=== PATIENT | male | born 1965 | race Caucasian/White ===

== ENCOUNTER 2017-11-11 11:51 | Inpatient (IN) ==
[2017-11-11] MEDS ORDERED: Naloxone 0.4 MG/ML INJ IVP PRN (15:24)
[2017-11-11] MEDS ORDERED: D5% in 0.45% NACL 1,000 ML IVC PRN (15:26)
[2017-11-11] MEDS ORDERED: *HR* Dextrose 50 % in Water (Syg) 50 ML SYRINGE IVP PRN (15:26)
[2017-11-11] MEDS ORDERED: Insulin Regular, Human 100 UNIT/ML IV PRN (15:26)
[2017-11-11] MEDS ORDERED: D5% in 0.45% NACL w KCl 20 MEQ/1,000 ML MLS IVC PRN (15:26)
[2017-11-11] MEDS ORDERED: 0.9 % Sodium Chloride w KCl 20 MEQ/1,000 ML MLS IVC SCH (15:30)
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
[2017-11-11 16:16] LABS: Magnesium 2.7 mg/dL (1.6-2.6); Phosphorous 2.7 mg/dL (2.7-4.5)
[2017-11-11 16:20] LABS: Calcium 8.9 mg/dL (8.6-10.3)
[2017-11-11] MEDS ORDERED: Potassium Phosphate 44 MEQ in 0.9 % Sodium Chloride 250 ML IVPB ONE (16:23)
[2017-11-11 16:27] LABS: Bilirubin,Urine Negative (Negative); Blood,Urine Large (Negative); Clarity,Urine Clear (Clear); Color,Urine Yellow (Yellow); Glucose,Urine (UA) >=1000 mg/dL (Normal); Ketones,Urine Negative (Negative); Leukocyte Esterase,Urine Negative (Negative); Nitrite,Urine Negative (Negative); Protein,Urine 100 mg/dL (Neg-Trace); Specific Gravity,Urine 1.028 (1.010-1.025); Urobilinogen,Urine Normal (Normal)
[2017-11-11 16:30] LABS: Bacteria,Urine None Seen per hpf (None-Few); Hyaline Casts,Urine None Seen per lpf (None-Few); Squamous Epithelial Cell,Urine Many per lpf (None-Few)
[2017-11-11] MEDS ORDERED: Potassium Chloride Elixir 20 MEQ/15 ML UDC PO ONE (16:32)
[2017-11-11] MEDS: Insulin Human Regular 100 UNIT in 0.9 % Sodium Chloride 100 ML IVC SCH ×3 (16:50→23:45)
[2017-11-11] MEDS ORDERED: Ondansetron 4 MG/2 ML VIAL IVP PRN (16:56)
[2017-11-11 17:08] LABS: Estimated Average Glucose 309 mg/dl; Hemoglobin A1C 12.4 %
[2017-11-11 18:41] LABS: Adenovirus Not Detected (Not Detect); Bordetella Pertussis Not Detected (Not Detect); Chlamydophila pneumoniae Not Detected (Not Detect); Coronavirus 229E Not Detected (Not Detect); Coronavirus HKU1 Not Detected (Not Detect); Coronavirus NL63 Not Detected (Not Detect); Coronavirus OC43 Not Detected (Not Detect); Human Metapneumovirus Not Detected (Not Detect); Human Rhinovirus/Enterovirus Not Detected (Not Detect); Influenza A Subtype 2009 H1 Not Detected (Not Detect); Influenza A Untypeable Not Detected (Not Detect); Influenza B Not Detected (Not Detect); Mycoplasma pneumoniae Not Detected (Not Detect); Parainfluenza Virus 1 Not Detected (Not Detect); Parainfluenza Virus 2 Not Detected (Not Detect); Parainfluenza Virus 3 Not Detected (Not Detect); Parainfluenza Virus 4 Not Detected (Not Detect); Respiratory Syncytial Virus Not Detected (Not Detect)
[2017-11-11] MEDS: 0.9 % Sodium Chloride w KCl 20 MEQ/1,000 ML MLS IVC SCH ×2 (18:48→21:10)
[2017-11-11 20:03] LABS: Troponin I 0.09 ng/mL (< 0.04)
[2017-11-11] MEDS ORDERED: Chloraseptic Spray 177 ML BOTTLE MM PRN (20:12)
[2017-11-11 21:10] LABS: Calcium 8.5 mg/dL (8.6-10.3); Potassium 4.5 mEq/L (3.5-5.1)
[2017-11-11] MEDS: 0.45 % Sodium Chloride w/KCl 20 MEQ/1,000 ML MLS IVC SCH (21:30)
[2017-11-11] MEDS: *HR* Heparin 5,000 UNIT/ML VIAL SQ SCH (21:34)
[2017-11-12 02:09] LABS: Calcium 8.5 mg/dL (8.6-10.3); Potassium 3.7 mEq/L (3.5-5.1)
[2017-11-12 02:15] LABS: Troponin I 0.13 ng/mL (< 0.04)
[2017-11-12] MEDS: 0.45 % Sodium Chloride w/KCl 20 MEQ/1,000 ML MLS IVC SCH (03:19)
[2017-11-12] MEDS: Insulin Human Regular 100 UNIT in 0.9 % Sodium Chloride 100 ML IVC SCH (03:19)
[2017-11-12 04:57] LABS: Calcium 8.9 mg/dL (8.6-10.3); Potassium 3.9 mEq/L (3.5-5.1)
[2017-11-12] MEDS: *HR* Heparin 5,000 UNIT/ML VIAL SQ SCH ×3 (05:24→21:23)
[2017-11-12] MEDS ORDERED: *HR* Dextrose 50 % in Water (Syg) 50 ML SYRINGE IVP PRN ×2 (05:26→15:48)
[2017-11-12] MEDS ORDERED: Dextrose Gel 15 GM/37.5 ML TUBE PO PRN ×4 (05:26→15:48)
[2017-11-12] MEDS ORDERED: D5% in Water 1,000 ML IVC PRN ×2 (05:26→15:48)
[2017-11-12] MEDS ORDERED: Insulin DETEMIR 100 UNIT/ML X5UNITS SQ SCH ×2 (05:30→21:00)
--- NOTE | 2017-11-12 07:59 | Pulmonology Progress Note ---
<Talya Rodríguez E - Last Filed: 11/12/17 13:40> Date of Encounter: 11/12/17 Time of Encounter: 07:28 Assessment and Plan (1) DKA (diabetic ketoacidoses) Current Visit: Yes Status: Acute Started Levemir Every 4 BMPs until sodium resolves Insulin drip stopped D5 dextrose in water with KCl started Diabetes education consult Qualifiers: Diabetes mellitus type: type 2 Diabetes mellitus complication detail: without coma Qualified Code(s): E11.10 - Type 2 diabetes mellitus with ketoacidosis without coma (2) Hypernatremia Current Visit: Yes Status: Acute Sodium 163 this morning BMP every 4 until sodium is resolved D5 dextrose and water started Increased free water by mouth (3) Pneumonia Current Visit: Yes Status: Suspected Chest x-ray from [facility] showed left lower lobe pneumonia. Empiric ceftriaxone 1 g daily Azithromycin 250 mg daily We will repeat chest x-ray Saturday morning Qualifiers: Qualified Code(s): J18.9 - Pneumonia, unspecified organism (4) Coronary artery disease Current Visit: Yes Status: Acute Patient had EKG changes at [facility], these stabilized on today's EKG. Suspicion for coronary artery disease We recommend cardiology consult and outpatient follow-up. Qualifiers: Coronary Disease-Associated Artery/Lesion type: unspecified vessel or lesion type [place] vs. transplanted heart: [place] heart Associated angina: without angina Qualified Code(s): I25.10 - Atherosclerotic heart disease of [place] coronary artery without angina pectoris (5) DVT prophylaxis Current Visit: Yes Status: Acute Heparin 5000 units subcutaneous every 8 (6) Sleep apnea Current Visit: Yes Status: Acute Nurse witnessed apneic event and patient was sleeping Patient breathe shallowly and fast and then stopped and then started breathing shallow and fast again and then large deep breaths Abdominal muscles were not in use at this time. Concern for central sleep apnea Will need outpatient consult for sleep apnea and possible sleep study Qualifiers: Sleep apnea type: unspecified type Qualified Code(s): G47.30 - Sleep apnea , unspecified Subjective Principal diagnosis: DKA Objective PUL Vital signs: Last Vital Signs Temp 97.5 F L 11/12/17 04:00 Pulse 112 11/12/17 06:00 Resp 20 11/12/17 06:00 BP 116/89 11/12/17 06:00 Pulse Ox 95 11/12/17 06:00 Results - Laboratory Findings CBC and BMP: 11/12/17 04:20 Abnormal lab findings: Abnormal lab results Sodium 163 mEq/L (136-145) H* 11/12/17 04:20 Chloride 130 mEq/L (98-107) H 11/12/17 04:20 BUN 41 mg/dL (6-20) H 11/12/17 04:20 Creatinine 2.53 mg/dL (0.70-1.30) H 11/12/17 04:20 Est GFR ( Amer) 33 (> 60) L 11/12/17 04:20 Est GFR (Non-Af Amer) 27 (> 60) L 11/12/17 04:20 Glucose 271 mg/dL (70-105) H 11/12/17 04:20 POC Glucose 121 mg/dL (70-99) H 11/12/17 06:09 Hemoglobin A1c 12.4 % (-5.6) H 11/11/17 15:43 Serum Osmolality 394 mOsm/kg (280-300) H 11/11/17 15:43 Calculated Osmolality 356 (280-300) H 11/12/17 04:20 Lactic Acid 2.8 mmol/L (0.5-2.2) H 11/11/17 15:43 Magnesium 2.7 mg/dL (1.6-2.6) H 11/11/17 15:43 Troponin I 0.13 ng/mL (< 0.04) H* 11/12/17 00:20 Ur Specific [employer] 1.028 (1.010-1.025) H 11/11/17 16:00 Urine Protein 100 mg/dL (Neg-Trace) H 11/11/17 16:00 Urine Glucose (UA) >=1000 mg/dL (Normal) H 11/11/17 16:00 Urine Blood Large (Negative) H 11/11/17 16:00 Urine Microscopic RBC 5-15 per hpf (0-3) H 11/11/17 16:00 Urine Microscopic WBC 5-15 per hpf (0-3) H 11/11/17 16:00 Ur Squamous Epith Cells Many per lpf (None-Few) H 11/11/17 16:00 - Clinical Findings Intake & Output: Intake & Output 11/11/17 11/11/17 11/12/17 15:59 23:59 07:59 Intake Total 2781 / 2781 1098 / 1098 Output Total 1875 / 1875 300 / 300 Balance 906 / 906 798 / 798 Weight 120.9 kg Consult Discharge Plan - Plan Referrals: NONE,PCP [Primary Care Provider] - <Richie Tang - Last Filed: 11/12/17 16:11> Date of Encounter: 11/12/17 Objective PUL Vital signs: Last Vital Signs Temp 98.2 F 11/12/17 12:00 Pulse 115 11/12/17 15:00 Resp 26 11/12/17 15:00 BP 136/96 11/12/17 15:00 Pulse Ox 93 11/12/17 15:00 Results - Laboratory Findings CBC and BMP: 11/12/17 04:20 Abnormal lab findings: Abnormal lab results Sodium 163 mEq/L (136-145) H* 11/12/17 04:20 Chloride 130 mEq/L (98-107) H 11/12/17 04:20 BUN 41 mg/dL (6-20) H 11/12/17 04:20 Creatinine 2.53 mg/dL (0.70-1.30) H 11/12/17 04:20 Est GFR ( Amer) 33 (> 60) L 11/12/17 04:20 Est GFR (Non-Af Amer) 27 (> 60) L 11/12/17 04:20 Glucose 271 mg/dL (70-105) H 11/12/17 04:20 POC Glucose 354 mg/dL (70-99) H 11/12/17 11:29 Hemoglobin A1c 12.4 % (-5.6) H 11/11/17 15:43 Serum Osmolality 394 mOsm/kg (280-300) H 11/11/17 15:43 Calculated Osmolality 356 (280-300) H 11/12/17 04:20 Lactic Acid 2.8 mmol/L (0.5-2.2) H 11/11/17 15:43 Magnesium 2.7 mg/dL (1.6-2.6) H 11/11/17 15:43 Troponin I 0.13 ng/mL (< 0.04) H* 11/12/17 00:20 Ur Specific [employer] 1.028 (1.010-1.025) H 11/11/17 16:00 Urine Protein 100 mg/dL (Neg-Trace) H 11/11/17 16:00 Urine Glucose (UA) >=1000 mg/dL (Normal) H 11/11/17 16:00 Urine Blood Large (Negative) H 11/11/17 16:00 Urine Microscopic RBC 5-15 per hpf (0-3) H 11/11/17 16:00 Urine Microscopic WBC 5-15 per hpf (0-3) H 11/11/17 16:00 Ur Squamous Epith Cells Many per lpf (None-Few) H 11/11/17 16:00 - Clinical Findings Intake & Output: Intake & Output 11/11/17 11/12/17 11/12/17 23:59 07:59 15:59 Intake Total 2781 / 2781 1098 / 1098 490 / 490 Output Total 1875 / 1875 300 / 300 200 / 200 Balance 906 / 906 798 / 798 290 / 290 Weight 120.9 kg - Attending Attestation - Attending Attestation I saw and evaluated this patient and my medical decision-making was reviewed with the Resident Physician. I agree with the documented findings, disposition and treatment plan as described except to the extent set forth below. We independently had [id number] contact with the patient Patient seen and examined at bedside Labs, radiology, chart personally reviewed. Management was reviewed during multidisciplinary critical care rounds. TELECOMMUNICATIONS TECHNICIAN: Patient is having episodic confusion secondary to toxic/metabolic encephalopathy secondary to diabetic ketoacidosis. 11/12 Patient is doing well mental status point of view patient has hypernatremia getting corrected with Free water . Pulm: Patient is having some VQ mismatch secondary to probably due to bilateral bibasilar atelectasis has some left lower lobe infiltrates. Treat as community acquired pneumonia. Patient was encouraged to sit up and do incentive Spirometry Cards: hemodynamically stable but volume depleted due to diabetic ketoacidosis will give at least 6 L of resuscitation according to protocol 11/12 Patient has definitely CAD to consider Cardiology consult before discharge once his acute metabolic abnormalities gets corrected . On presentation showed supply demand ischemia with latest EKG showed correction if ST-T changes FEN-GI: To advance diet as tolerated . Renal: labs and output were reviewed . To correct Hypernatremia with Free water to asses sodium in the morning ID: antibiotics for community-acquired pneumonia Heme/Onc: thromboprophylaxis Endo: new onset diabetic ketoacidosis to treat according to DKA protocol . 11/12 Patient was started on basal insulin and ISS as Blood glucose was trending upwards will double the basal insulin dose Integ/MSK: Skin Care per routine ICU Nursing Protocol to prevent ulcers. Lines: All lines examined without evidence of infection : Dispo: DKA resolved will transfer to medical telemetry CODE:Full Code
[2017-11-12] MEDS ORDERED: Ondansetron 4 MG/2 ML VIAL IVP PRN ×3 (08:12→15:48)
[2017-11-12] MEDS ORDERED: Ondansetron 4 MG/2 ML VIAL ONE (08:16)
[2017-11-12] MEDS: Insulin LISPRO 300 UNITS/3 ML VIAL SQ SCH ×4 (08:20→21:23)
[2017-11-12] MEDS: Potassium Chloride 20 MEQ in D5% in Water 1,000 ML IVC SCH (08:57)
[2017-11-12] MEDS ORDERED: cefTRIAXone 1,000 MG in Water for inj. (sterile) 20 ML 10 ML IVP SCH (09:00)
[2017-11-12] MEDS ORDERED: Azithromycin 250 MG in D5% in Water 250 ML IVPB SCH ×2 (09:00)
[2017-11-12] MEDS ORDERED: Chloraseptic Spray 177 ML BOTTLE MM PRN (15:48)
[2017-11-12] MEDS ORDERED: Potassium Chloride 20 MEQ in D5% in Water 1,000 ML IVC SCH (15:48)
[2017-11-12] MEDS ORDERED: Naloxone 0.4 MG/ML INJ IVP PRN (15:48)
[2017-11-12] MEDS ORDERED: D5% in 0.45% NACL 1,000 ML IVC PRN (15:48)
[2017-11-12] MEDS ORDERED: D5% in 0.45% NACL w KCl 20 MEQ/1,000 ML MLS IVC PRN (15:48)
[2017-11-12] MEDS ORDERED: 0.9 % Sodium Chloride w KCl 20 MEQ/1,000 ML MLS IVC SCH (15:48)
[2017-11-12] MEDS ORDERED: D5% in Water 1,000 ML IVC ONE (16:18)
[2017-11-12 16:35] LABS: Basophils % 0.2 %; Hematocrit 47.1 % (37.5-50.1); Hemoglobin 15.3 g/dL (12.9-16.9); Immature Granulocytes % 1.3 % (0-4); Lymphocytes # 1.7 K/mcL (0.6-4.6); Lymphocytes % 8.5 %; Mean Corpuscular HGB Conc 32.5 g/dL (31.6-35.5); Mean Corpuscular Hemoglobin 30.7 pg (28.0-33.3); Mean Corpuscular Volume 94.6 fL (83.0-100.0); Mean Platelet Volume 12.3 fL (9.4-12.4); Monocytes # 1.2 K/mcL (0.0-1.3); Monocytes % 5.9 %; Neutrophils # 16.6 K/mcL (1.6-8.9); Platelet Count 132 K/mcL (140-400); Red Blood Count 4.98 M/mcL (4.19-5.50); Red Cell Distribution Width 13.5 % (11.5-14.5); Segmented Neutrophils % 84.1 %
[2017-11-12 16:40] LABS: Calcium 8.2 mg/dL (8.6-10.3); Potassium 5.2 mEq/L (3.5-5.1)
[2017-11-12] MEDS ORDERED: D5% in Water 1,000 ML IVC SCH (16:45)
[2017-11-12] MEDS ORDERED: Ondansetron ODT 4 MG TAB.RAPDIS SL PRN (16:48)
[2017-11-12] MEDS ORDERED: Insulin LISPRO 300 UNITS/3 ML VIAL SQ SCH (21:00)
[2017-11-12] MEDS ORDERED: Perflutren Lipid Microsphere 1.3 ML in 0.9 % Sodium Chloride 8.7 ML IVP ONE (21:04)
[2017-11-12 22:53] LABS: Calcium 8.3 mg/dL (8.6-10.3)
[2017-11-13] MEDS: *HR* Heparin 5,000 UNIT/ML VIAL SQ SCH ×3 (06:27→22:17)
[2017-11-13] MEDS: cefTRIAXone 1,000 MG in Water for inj. (sterile) 20 ML 10 ML IVP SCH (08:26)
[2017-11-13] MEDS: Insulin LISPRO 300 UNITS/3 ML VIAL SQ SCH ×7 (08:36→22:17)
[2017-11-13] MEDS: Azithromycin 250 MG in D5% in Water 250 ML IVPB SCH (09:04)
--- NOTE | 2017-11-13 10:48 | Internal Medicine Consult Note ---
Date of Encounter: 11/13/17 Time of Encounter: 10:46 - Assessment and plan (1) DKA (diabetic ketoacidoses) Current Visit: Yes Status: Acute Assessment and plan: New onset DKA with new diagnosis of DM -DKA resolved and pt transfered to medical floor from ICU -Started on Lantus 30units qhs -on high dose corrective SSI -will start mealtime coverage with 6units with meals and adjust accordingly -recheck bmp, glucose now -accuchecks achs -diabetic education -counseled on improtance of compliance -a1c pending Qualifiers: Diabetes mellitus type: type 2 Diabetes mellitus complication detail: without coma Qualified Code(s): E11.10 - Type 2 diabetes mellitus with ketoacidosis without coma (2) Pneumonia Current Visit: Yes Status: Suspected Assessment and plan: -as noted on imaging; could be contriburing to precipitating DKA -continue rocephin and azithromycin -on room air with pulse oxemitry around 90-92 -may need supplemental oxygen if drops Qualifiers: Pneumonia type: due to unspecified organism Laterality: left Lung location: lower lobe of lung Qualified Code(s): J18.1 - Lobar pneumonia, unspecified organism (3) Hypernatremia Current Visit: Yes Status: Acute Assessment and plan: Severe hypovolemic hypernatremia on admission then with substantial amount of NS given -Improving -bmp now -encouraged free water intake -may need to resume d5w but will await labs (4) Elevated troponin Current Visit: Yes Status: Acute Assessment and plan: troponin elevated on admission at 0.05 and has uptreneded to 0.09 and 0.13 -ischemic changes noted on ecg -twave inversions in inferior and lateral leads with st depression in lateral leads noted on inital ecgs -these changes have improved with depressions resolving and t wave flattening in inferior leads -denies chest pain -recheck troponin now -consult cardiology for evaluation (5) Obesity (BMI 30-39.9) Current Visit: Yes Status: Acute Assessment and plan: -lifestyle and dietary modifications encouraged (6) Sleep apnea Current Visit: Yes Status: Acute Assessment and plan: -suspected MITCHELL based on apneic events reported in ICU -will need outpatient sleep study for evaluation Qualifiers: Sleep apnea type: unspecified type Qualified Code(s): G47.30 - Sleep apnea , unspecified (7) DVT prophylaxis Current Visit: Yes Status: Acute Assessment and plan: hep sq - Time Spent With Patient Total time spent is greater than 50% in coordination of care (as documented) at patient's floor/unit and/or counseling patient: Greater than 35 minutes Internal Medicine - CN: HPI - Data of Consult Patient: new to practice Requesting Physician: Nay Brooke - Consult Narrative Reason for consult: DKA History of present illness: Mr. Lorenzo is a 52 year old male who presented with generalized weakness to the emergency room and was found to have a blood sugar of 1800. Patient was noted to be in diabetic ketoacidosis and was transferred to [facility] admitted to the ICU for DKA management. DKA resolved and the patient was given long-acting insulin and transferred to the medical floor where he is seen and evaluated today. The patient states he feels much better since admission. Currently the patient denies any chest pain, shortness of breath, cough, nausea, vomiting, abdominal pain just admits to continued weakness that is improved. Patient denies any recent febrile illnesses, sick contacts or recent travel. Patient states that he has no known medical problems prior to this admission and was on no medications, also states he does not drink or smoke. Soda and [employer] noted in room, pt states they are for his family; reiterated compliance with diabetic diet. Past Med Surg Social Fam HX - Past Medical History Medical history: no medical history Psychiatric history: no psych history - Past Surgical History Surgical History: no surgical history - Social History Smoking Status: Never smoker Alcohol use: none Drug use: none - Family History Mother Family Member Ethnicity: Non- Living Status: Still Living Hx Family Endocrine Disorder: Yes Review of systems: 10 point review of systems is obtained and is otherwise negative other than described in history of present illness Internal Medicine - CN: Meds Azithromycin [Azithromycin 6-Tab Pack] 250 mg PO PER PKG DI 11/11/17 [History] Ibuprofen 800 mg PO DAILY PRN 11/11/17 [History] 3 Allergy/AdvReac Type Severity Reaction Status Date / Time No Known Allergies Allergy Verified 11/11/17 18:36 Hospitalist - CN: Exam - Constitutional Vitals: Temp Pulse Resp BP Pulse Ox 97.8 F 106 18 124/82 91 11/13/17 07:45 11/13/17 07:45 11/13/17 07:45 11/13/17 07:45 11/13/17 08:51 Exam: Constitutional: No acute distress, Alert Psych: AAO x 3 HEENT: NCAT, EOMI Neck: supple, no JVD Cardio: regular rate and rhythm, +s1s2, no murmurs/rubs/gallops, no JVD Resp: clear to ascultation bilaterally, no wheezes/rales/ronchi Abd: soft, non tender/non distended, positive bowel sounds, no gaurding/reboud/ ridgitity, protuberant and obese Extremities: no clubbing/cyanosis/edema appreciated Neuro: no focal deficits appreciated Lymph: no cervical/supraclavicular adenopahty apprecitated Internal Medicine - CN: Reslt - Labs CBC & Chem 7: 11/13/17 11:05 11/12/17 22:13 Labs: Short CBC 11/12/17 Range/Units 16:07 WBC 19.7 H (4.3-11.1) K/mcL Hgb 15.3 D (12.9-16.9) g/dL Hct 47.1 (37.5-50.1) % Plt Count 132 L D (140-400) K/mcL Neutrophils # 16.6 H (1.6-8.9) K/mcL BMP 11/12/17 11/12/17 16:07 22:13 Sodium 152 H D 153 H Potassium 5.2 H D 5.0 Chloride 122 H 122 H Carbon Dioxide 28 25 BUN 44 H 40 H Creatinine 2.48 H 2.14 H Glucose 522 H* 459 H Calcium 8.2 L 8.3 L - Impressions Impressions Echocardiogram 11/12/17 13:39 Impressions: Technically sub-optimal due to poor echocardiographic windows. LVEF 65%. Normal LV chamber size, wall thickness and function. Mild left ventricular diastolic dysfunction. Normal right ventricular structure and function. Unable to estimate RVSP due to lack of TR jet. In image 11, there appeared to be a very small, mobile echodensity adherent to the atrial side of the annulus of the anterior mitral valve leaflet. This Consult Discharge Plan - Plan Referrals: NONE,PCP [Primary Care Provider] -
[2017-11-13] MEDS: Potassium Chloride 20 MEQ in D5% in Water 1,000 ML IVC SCH (10:58)
[2017-11-13 11:22] LABS: Basophils % 0.3 %; Eosinophils % 0.1 %; Hematocrit 49.1 % (37.5-50.1); Hemoglobin 15.7 g/dL (12.9-16.9); Immature Granulocytes % 0.7 % (0-4); Lymphocytes # 1.4 K/mcL (0.6-4.6); Lymphocytes % 9.5 %; Mean Corpuscular Hemoglobin 30.9 pg (28.0-33.3); Mean Corpuscular Volume 96.7 fL (83.0-100.0); Mean Platelet Volume 12.6 fL (9.4-12.4); Monocytes # 0.7 K/mcL (0.0-1.3); Monocytes % 4.5 %; Neutrophils # 12.9 K/mcL (1.6-8.9); Platelet Count 116 K/mcL (140-400); Red Blood Count 5.08 M/mcL (4.19-5.50); Red Cell Distribution Width 13.7 % (11.5-14.5); Segmented Neutrophils % 84.9 %
[2017-11-13] MEDS ORDERED: Insulin DETEMIR 100 UNIT/ML X5UNITS SQ ONE (11:40)
[2017-11-13 11:55] LABS: Calcium 8.4 mg/dL (8.6-10.3); Potassium 4.9 mEq/L (3.5-5.1)
--- NOTE | 2017-11-13 12:03 | Cardiology Consult Note ---
<Dylan Neumann - Last Filed: 11/13/17 12:39> Date of Encounter: 11/13/17 Time of Encounter: 12:00 Assessment and Plan (1) Elevated troponin Current Visit: Yes Status: Acute Mild troponin elevation 0.03, 0.19. Likely demand ischemia in the setting of ROSA , DKA, and sepsis. EKG also shows ST depression concerning for ischemia. He is not a candidate for further ischemic evaluation due to above. Consider stress test out-pt once issues resolve. TTE completed-LVEF 65%. Normal LV chamber size, wall thickness and function. Mild left ventricular diastolic dysfunction. Normal right ventricular structure and function. There appeared to be a very small, mobile echodensity adherent to the atrial side of the annulus of the anterior mitral valve leaflet. JOANNA to be considered. (2) Pneumonia Current Visit: Yes Status: Suspected Primary team following. CXR showed-Question subtle retrocardiac left lower lobe infiltrate versus atelectasis. On IV antibiotic. WBC elevated. Qualifiers: Pneumonia type: due to unspecified organism Laterality: left Lung location: lower lobe of lung Qualified Code(s): J18.1 - Lobar pneumonia, unspecified organism (3) Abnormal echocardiogram Current Visit: Yes Status: Acute Mobile echodensity seen on anterior mitral valve leaflet. Discussed with Dr. Flores, JOANNA should be considered if bacteremia or elevated dukes score. + 1 major- per echo finding. No minor. Blood culture pending. Discussion w patient/family: The assessment and plan as outlined above was discussed with the patient and/or family members who expressed understanding and agreement. All questions were answered. Thank you for involving us in the care of your patient. Please call with any questions. History of Present Illness Consult date: 11/13/17 Requesting physician: Clarence Hubbard Consult reason: elevated troponin Chief complaint: Increased urination, decreased appetite, weakness, URI symptoms History of present illness: Mr. Lorenzo is a 52 year old male with no significant past medical history presents with the c/o "flu like symptoms." C/o malaise, decreased appetite, frequent urination, and congestion. He is found to newly have DM, DKA, ROSA, likely severe MITCHELL, and PNA. Cardiology consulted for elevated troponin. On my exam, he is drowsy, slightly confused. He denies chest pain. Denies SOB, orthopnea, or edema. Denies palpitations. Noted to have hypoxia when falling asleep. Denies cardiac history. Past Med Surg Social Fam HX - Past Medical History Medical history: no medical history Psychiatric history: no psych history - Past Surgical History Surgical History: no surgical history - Social History Smoking Status: Never smoker Alcohol use: none Drug use: none - Family History Mother Family Member Ethnicity: Non- Living Status: Still Living Hx Family Endocrine Disorder: Yes Medications and Allergies Azithromycin [Azithromycin 6-Tab Pack] 250 mg PO PER PKG DI 11/11/17 [History] Ibuprofen 800 mg PO DAILY PRN 11/11/17 [History] 3 Allergy/AdvReac Type Severity Reaction Status Date / Time No Known Allergies Allergy Verified 11/11/17 18:36 All Systems Review: The remainder of the systems were reviewed and are negative Physical Examination Vital Signs, Last 4 Hours Temp Pulse Resp BP Pulse Ox 11/13/17 11:27 98.7 F 109 18 119/76 94 11/13/17 08:51 91 General: Conversant, No Apparent Distress HEENT: Atraumatic, Normocephaly, Mucus Membranes Moist Neck: No JVD, Normal carotid pulses Cardiac: Reg Rate and Rhythm, Normal S1 and S2, No Murmur Lungs: Normal Breath Sounds, No Wheeze, Rales, Rhonchi Neuro: No focal deficits noted, Other (Drowsy, appears confused. ) Abdomen: Soft, Non-Tender Skin: No rashes noted on visualized skin Musculoskeletal: No Chest Wall Tenderness Extremities: No Clubbing, No Cyanosis, Normal Pulses, Other Results 11/13/17 11:05 11/13/17 11:05 Lab Results 11/12/17 11/12/17 11/12/17 16:07 16:07 22:13 WBC 19.7 H Hgb 15.3 D Hct 47.1 Plt Count 132 L D Sodium 152 H D 153 H Potassium 5.2 H D 5.0 Chloride 122 H 122 H Carbon Dioxide 28 25 BUN 44 H 40 H Creatinine 2.48 H 2.14 H Glucose 522 H* 459 H Calcium 8.2 L 8.3 L Troponin I 11/13/17 11/13/17 11/13/17 11:05 11:05 11:05 WBC 15.2 H Hgb 15.7 Hct 49.1 Plt Count 116 L Sodium 150 H Potassium 4.9 Chloride 115 H Carbon Dioxide 27 BUN 39 H Creatinine 1.93 H Glucose 534 H* Calcium 8.4 L Troponin I 0.05 H* - Imaging and Cardiology Echo: report reviewed - EKG Interpretation EKG results cardiology: personally reviewed Consult Discharge Plan - Plan Referrals: NONE,PCP [Primary Care Provider] - <Jose Flores - Last Filed: 11/13/17 18:49> Date of Encounter: 11/13/17 - Attending Attestation Patient was seen and evaluated independently by me. Findings, assessment and plan were discussed at length with patient, questions answered. Agree with nurse practitioner's documentation. Addition as follows, 52 yoCM w/o know med ho p/w "cold". Imp DKA, new DM, suspected PNA w/ or w/o bateremia. Consulted for mild trop elevation and mild STD. TTE images reviewed + small mobile mass likley attached to ant-leaf/annulus. A: Type II NSTEMI, mobile mass of mitral valve P: - if +bacteremia w/o clear source and suspicion of infectious endocarditis per Jones criteria, JOANNA to eval mitral valve mass r/o vegetation - outpatient CAD w/u if no sig trop elevation Jose Flores MD, PhD Assessment and Plan Discussion w patient/family: The assessment and plan as outlined above was discussed with the patient and/or family members who expressed understanding and agreement. All questions were answered. Thank you for involving us in the care of your patient. Please call with any questions. History of Present Illness History of present illness: Mr. Lorenzo is a 52 year old male All Systems Review: The remainder of the systems were reviewed and are negative Physical Examination Vital Signs, Last 4 Hours Temp Pulse Resp BP Pulse Ox 11/13/17 16:00 98.3 F 111 19 149/75 96 Results 11/13/17 11:05 11/13/17 11:05 Lab Results 11/12/17 11/13/17 11/13/17 22:13 11:05 11:05 WBC 15.2 H Hgb 15.7 Hct 49.1 Plt Count 116 L Sodium 153 H 150 H Potassium 5.0 4.9 Chloride 122 H 115 H Carbon Dioxide 25 27 BUN 40 H 39 H Creatinine 2.14 H 1.93 H Glucose 459 H 534 H* Calcium 8.3 L 8.4 L Troponin I 11/13/17 11:05 WBC Hgb Hct Plt Count Sodium Potassium Chloride Carbon Dioxide BUN Creatinine Glucose Calcium Troponin I 0.05 H*
[2017-11-13] MEDS ORDERED: Insulin LISPRO 300 UNITS/3 ML VIAL SQ SCH (16:30)
[2017-11-13] MEDS: Insulin DETEMIR 100 UNIT/ML X5UNITS SQ SCH ×2 (21:43→22:18)
[2017-11-14] MEDS: *HR* Heparin 5,000 UNIT/ML VIAL SQ SCH ×3 (06:28→21:36)
[2017-11-14] MEDS: Insulin LISPRO 300 UNITS/3 ML VIAL SQ SCH ×7 (08:52→21:35)
[2017-11-14] MEDS: cefTRIAXone 1,000 MG in Water for inj. (sterile) 20 ML 10 ML IVP SCH (08:53)
[2017-11-14] MEDS: Azithromycin 250 MG in D5% in Water 250 ML IVPB SCH (10:17)
[2017-11-14] MEDS: Azithromycin 250 MG TABLET PO SCH (10:22)
--- NOTE | 2017-11-14 11:06 | Internal Med Progress Note ---
Hospitalist Progress Note - Encounter Date of Encounter: 11/14/17 Time of Encounter: 11:00 - Subjective Interval History: Patient seen and examined at bedside with . reports difficulties with staff last evening. Please see nursing notes. There are also reports of severe oxygen desaturation when supplemental oxygen was removed by patient. Pulse ox currently is 98% on oxygen mask. Patient states that he continues to feel better. Patient denies any chest pain, shortness of breath, nausea, vomiting, diarrhea. Small mobile lesion noted on echocardiogram that could represent vegetation. Discussed with patient he states he has never used IV drugs. - Exam Vitals: Temp Pulse Resp BP Pulse Ox 99.4 F 89 20 123/81 97 11/14/17 07:52 11/14/17 07:52 11/14/17 07:52 11/14/17 07:52 11/14/17 07:52 Exam: Constitutional: No acute distress, Alert Psych: AAO x 3 HEENT: NCAT, EOMI Neck: supple Cardio: regular rate and rhythm, +s1s2, no murmurs/rubs/gallops Resp: clear to ascultation bilaterally, no wheezes/rales/ronchi Abd: soft, non tender/non distended, positive bowel sounds, no gaurding/reboud/ ridgitity, protuberant and obese Extremities: no clubbing/cyanosis/edema appreciated Neuro: no focal deficits appreciated - Assessment and Plan (1) DKA (diabetic ketoacidoses) Current Visit: Yes Status: Acute Assessment and Plan: New onset DKA with new diagnosis of DM -DKA resolved and pt transfered to medical floor from ICU -Started on Lantus increased to 45units qhs -on high dose corrective SSI -mealtime coverage increased to 10units with meals -awaiting am labs -accuchecks achs -diabetic education -counseled on improtance of compliance -a1c 12.4 -appears that 74 units of SSI was administered in last 24 hours -Will not start metformin in light of acute renal failure (2) Acute renal failure Current Visit: Yes Status: Acute Assessment and Plan: Presented with Serum creatinine of 3.02 and severe volume depletion due to DKA -also with significant protienuria likely secondary to uncontrolled DM -creatinine improving, down to 1.93; awaiting am labs -if creatinine continues to improve or stabalize, will need outpatient nephro evaluation (3) Pneumonia Current Visit: Yes Status: Suspected Assessment and Plan: -as noted on imaging; could be contriburing to precipitating DKA -continue rocephin and azithromycin -Currently on supplemental oxygen with oxygen mask with adequate pulse ox -Reports of severe desaturation without oxygen last evening unsure of reliability -May need home oxygen evaluation will evaluate tomorrow (4) Hypernatremia Current Visit: Yes Status: Acute Assessment and Plan: Severe hypovolemic hypernatremia on admission then with substantial amount of NS given -Improving -await am bmp -encouraged free water intake -may need to resume d5w but will await labs (5) Elevated troponin Current Visit: Yes Status: Acute Assessment and Plan: troponin elevated on admission at 0.05 and has uptreneded to 0.09 and 0.13 -ischemic changes noted on ecg -twave inversions in inferior and lateral leads with st depression in lateral leads noted on inital ecgs -these changes have improved with depressions resolving and t wave flattening in inferior leads -denies chest pain -troponin downtrending -Echo ordered revealed small lesion on mitral valve that could be vegetation -Will need outpatient stress test (6) Obesity (BMI 30-39.9) Current Visit: Yes Status: Acute Assessment and Plan: -lifestyle and dietary modifications encouraged (7) Sleep apnea Current Visit: Yes Status: Acute Assessment and Plan: -suspected MITCHELL based on apneic events reported in ICU -will need outpatient sleep study for evaluation -Reports of severe oxygen desaturation without supplemental oxygen at nighttime -May need home oxygen evaluation, will evaluate tomorrow -Maintain supplemental oxygen titrated for pulse ox of 92% (8) Abnormal echocardiogram Current Visit: Yes Status: Acute Assessment and Plan: TTE revealed very small, mobile echodensity adherent to the atrial side of the annulus of anterior mitral valve leafelet -Afebrile -No preipheral stigmata of endocarditis on exam -Blood culutres ordered -consult ID to eval for need for JOANNA? -Denies history of IV drug abuse (9) DVT prophylaxis Current Visit: Yes Status: Acute Assessment and Plan: hep sq DVT Prophylaxis: sub q heparin - Summary of Assessment and Plan Summary of Assessment and Plan: maintain supplemental oxygen titrate insulin as needed; requiring uptitration currently consult ID to eval for need for JOANNA blood cultures ordered await am labs - Time Spent with Patient Total time spent is greater than 50% in coordination of care (as documented) at patient's floor/unit and/or counseling patient: 25 - 35 minutes Plan of Care Discussed with: patient Internal Medicine: Result - Labs CBC & Chem 7: 11/13/17 11:05 11/13/17 11:05 Labs: Short CBC 11/13/17 Range/Units 11:05 WBC 15.2 H (4.3-11.1) K/mcL Hgb 15.7 (12.9-16.9) g/dL Hct 49.1 (37.5-50.1) % Plt Count 116 L (140-400) K/mcL Neutrophils # 12.9 H (1.6-8.9) K/mcL BMP 11/13/17 11:05 Sodium 150 H Potassium 4.9 Chloride 115 H Carbon Dioxide 27 BUN 39 H Creatinine 1.93 H Glucose 534 H* Calcium 8.4 L Cardiac Enzymes 11/13/17 Range/Units 11:05 Troponin I 0.05 H* (< 0.04) ng/mL Consult Discharge Plan - Plan Referrals: NONE,PCP [Primary Care Provider] - (1) DKA (diabetic ketoacidoses) Qualifiers: Diabetes mellitus type: type 2 Diabetes mellitus complication detail: without coma Qualified Code(s): E11.10 - Type 2 diabetes mellitus with ketoacidosis without coma (2) Acute renal failure Qualifiers: Acute renal failure type: unspecified Qualified Code(s): N17.9 - Acute kidney failure, unspecified (3) Pneumonia Qualifiers: Pneumonia type: due to unspecified organism Laterality: left Lung location: lower lobe of lung Qualified Code(s): J18.1 - Lobar pneumonia, unspecified organism (7) Sleep apnea Qualifiers: Sleep apnea type: unspecified type Qualified Code(s): G47.30 - Sleep apnea, unspecified
[2017-11-14] MEDS ORDERED: Insulin LISPRO 300 UNITS/3 ML VIAL SQ SCH (12:00)
[2017-11-14 12:15] LABS: Red Cell Distribution Width 13.6 % (11.5-14.5)
[2017-11-14 12:17] LABS: Basophils % 0.2 %; Eosinophils # 0.1 K/mcL (0.0-0.6); Eosinophils % 0.6 %; Hematocrit 45.9 % (37.5-50.1); Hemoglobin 14.7 g/dL (12.9-16.9); Immature Granulocytes % 0.6 % (0-4); Immature Platelets 12.1 % (1.1-6.1); Lymphocytes # 1.8 K/mcL (0.6-4.6); Lymphocytes % 15.8 %; Mean Corpuscular Hemoglobin 31.1 pg (28.0-33.3); Mean Platelet Volume 12.1 fL (9.4-12.4); Monocytes # 0.5 K/mcL (0.0-1.3); Monocytes % 4.4 %; Neutrophils # 8.9 K/mcL (1.6-8.9); Red Blood Count 4.73 M/mcL (4.19-5.50); Segmented Neutrophils % 78.4 %
[2017-11-14 12:20] LABS: Platelet Count 76 K/mcL (140-400); Platelet Estimate Decreased (Normal)
[2017-11-14 12:33] LABS: BUN/Creatinine Ratio 25 (6-26); Blood Urea Nitrogen 28 mg/dL (6-20); Calcium 9.2 mg/dL (8.6-10.3); Carbon Dioxide 32 mEq/L (23-29); Chloride 116 mEq/L (98-107); Glucose 362 mg/dL (70-105); Magnesium 2.7 mg/dL (1.6-2.6); Osmolality,Calculated 334 (280-300); Phosphorous 2.3 mg/dL (2.7-4.5); Potassium 4.2 mEq/L (3.5-5.1); Sodium 152 mEq/L (136-145); eGFR For Non-African Americans > 60 (> 60)
--- NOTE | 2017-11-14 13:14 | Infectious Disease Consult ---
Date of Encounter: 11/14/17 Time of Encounter: 13:10 Assessment and Plan (1) SIRS (systemic inflammatory response syndrome) Status: Acute Assessment and plan: The patient had two SIRS criteria plus hypotension, lactic acidosis, and ROSA on admission. Likely secondary to DKA, but the patient's CXR also showed possible PNA and his ECHO showed possible vegetation raising the suspicion for sepsis. Improved. WBC normalized. Continues to have tachycardia. Blood pressure improved. Lactic acidosis and ROSA have resolved. Blood cultures drawn 11/11/17 are NGTD x 2 sets. (2) Abnormal echocardiogram Status: Acute Assessment and plan: Transthoracic echocardiogram showed a possible mobile echodensity on the atrial side of the annulus of the anterior mitral valve leaflet concerning for vegetation. Blood cultures obtained 11/11/17 are no growth to date. The patient did have surgical criteria on admission, but this could be more likely secondary to his DKA. The patient denies any high-risk behavior including IV drug use. He denies any skin or soft tissue infections. He denies any chronic infectious diseases. Recheck blood cultures 3 sets now. Check rheumatoid factor. Check Coxiella burnetti IgG 1 and 2. Recommend JOANNA. No further antibiotics needed at this time. Continue to monitor closely. If the patient becomes febrile, recommend repeating blood cultures x 3 sets. We will continue to follow. (3) Pneumonia Status: Suspected Assessment and plan: Location: LLL. Causative organism unclear. RIP negative. Get sputum culture if the patient is able to provide an adequate specimen. Check S. pneumo and Legionella UAT. Repeat CXR in the AM. Continue Rocephin 1 gram IV daily (day 4). Duration of treatment depends on the clinical picture. Qualifiers: Pneumonia type: due to unspecified organism Laterality: left Lung location: lower lobe of lung Qualified Code(s): J18.1 - Lobar pneumonia, unspecified organism (4) DKA (diabetic ketoacidoses) Status: Resolved Assessment and plan: Resolved. Qualifiers: Diabetes mellitus type: type 2 Diabetes mellitus complication detail: without coma Qualified Code(s): E11.10 - Type 2 diabetes mellitus with ketoacidosis without coma (5) Hypernatremia Status: Acute Assessment and plan: Likely pseudohypernatremia due to hyperglycemia. Management per the primary team. (6) Elevated troponin Status: Acute Assessment and plan: Cardiology consulted. (7) Acute renal failure Status: Acute Assessment and plan: Likely pre-renal due to poor PO intake vs. sepsis. Improved. Continue to trend. Dose-adjust medications. Avoid nephrotoxins as able. Qualifiers: Acute renal failure type: unspecified Qualified Code(s): N17.9 - Acute kidney failure, unspecified (8) Sleep apnea Status: Acute Assessment and plan: Patient noted to have episodes of apnea while sleeping. Refusing ABGs and BIPAP at this time despite extensive counseling from the primary team. Qualifiers: Sleep apnea type: unspecified type Qualified Code(s): G47.30 - Sleep apnea , unspecified (9) Obesity (BMI 30-39.9) Status: Acute Infectious Disease HPI - Data of Consult Patient: new to practice Consult date: 11/14/17 Requesting Physician: Nay Brooke Primary Care Provider: PCP NONE - Consult Narrative Reason for consult: Possible endocarditis History of present illness: Mr. Lorenzo is a 52 year old male with no known past medical history. The patient was admitted to the hospital November 11 for DKA and pneumonia. We are consulted November 14 for antibiotic recommendations for possible endocarditis. Briefly, the patient is a 52-year-old male with no known past medical history. The patient presented to [facility] emergency department with complaints of generalized malaise, fatigue, weakness, urinary frequency, and poor appetite for about a week prior to presentation. Upon arrival, patient was afebrile, but he was tachycardic and hypotensive. He also had leukocytosis with neutrophilic predominance. Additional labs revealed hypokalemia, lactic acidosis, and acute kidney injury. LFTs were elevated as well. He is also noted to be acidotic and in DKA with a blood sugar of 1800. Urinalysis was obtained, but was contaminated. Urine drug screen was negative. Respiratory infectious panel was negative. Troponin was mildly elevated at 0.05. Chest x- ray showed a possible left lower lobe pneumonia. Blood cultures were obtained 2 sets. He was started on Rocephin and Zithromax and transferred here for further evaluation. Since admission, the patient has remained afebrile and his blood pressure has stabilized. His white blood cell count is trending down. His acute kidney injury has resolved. He had a transthoracic echocardiogram that showed an EF of 65% with a possible very small mobile echodensity on the atrial side of the annulus of the anterior mitral valve leaflet. Blood cultures obtained in the emergency department are no growth to date. His lactic acidosis has resolved. Cardiology was consulted to recommended outpatient stress test for his elevated troponin. They have signed off the case. Currently, patient is on Rocephin. We have been asked to evaluate and make further recommendations. Upon my entrance into the room, the patient was sleeping. He was very difficult to arouse and when he did wake up, he appeared confused and disoriented. It took him several minutes to acheive and maintain true wakefulness and answer my questions. He still seemed to be a poor historian regarding the events leading up to his hospitalization. He does tell me that for the past month he has had increased thirst and has been drinking a lot of pop and water and eating a lot of watermelon and cantaloupe. He reports increased weakness to the point he could not stand up. He was visiting family in the area and they called the squad. He denies fevers, chills, or rigors. Denies night sweats and reports minimal weight loss in the past month. Per the documentation, the patient originally complained of feeling like he had a cold with generalized fatigue and malaise and urinary frequency/dysuria. He denies any nausea, vomiting, or diarrhea. States he hasn't had a BM since admission. States the urinary frequency has improved. Denies abdominal pain. States he does feel hungry currently and his appetite has been good. He denies oral thrush or skin lesions. The patient lives at home with his . He denies any recent travel. He denies tobacco, alcohol, or illicit drug use. Denies chronic infectious diseases such as HIV, TB, or hepatitis. CC: Nay Brooke Past Med Surg Social Fam HX - Past Medical History Medical history: no medical history Psychiatric history: no psych history - Past Surgical History Surgical History: no surgical history - Social History Smoking Status: Never smoker Alcohol use: none Drug use: none Occupational status: retired Current living situation: Home - Independent Activity Level: Independent ambulation Recent Out of Country Travel Within the Last 8 Weeks: No Exposure or Possible Exposure to Illness During Travel: No - Family History Mother Family Member Ethnicity: Non- Living Status: Still Living Hx Family Endocrine Disorder: Yes Infectious Disease-CN:Meds Azithromycin 250 mg PO DAILY 2 Days #2 tablet 11/15/17 [Rx] Azithromycin [Zithromax] 250 mg PO Q24H 2 Days #1 tablet 11/15/17 [Rx] Cefpodoxime Proxetil 200 mg PO BID 5 Days #10 tablet 11/15/17 [Rx] Insulin Glargine,Hum.rec.anlog [Lantus Solostar] 45 unit SQ HS 30 Days #1 [Rx] Insulin LISPRO [Humalog Kwikpen U-100] 12 unit SQ TIDWM #1 11/15/17 [Rx] Lancets/Blood Glucose Strips [Fora [id number] Strp-Lnct] 1 each [facility] # 120 combo..pkg 11/15/17 [Rx] Pen Needle, Diabetic [1St Tier Unifine Pentips] 1 each ACHS 30 Days #150 dis.needle 11/15/17 [Rx] 3 Allergy/AdvReac Type Severity Reaction Status Date / Time No Known Allergies Allergy Verified 11/11/17 18:36 All systems: reviewed and no additional remarkable complaints except as stated Exam - Constitutional Vitals: Temp Pulse Resp BP Pulse Ox 99.2 F 100 19 130/82 96 11/14/17 12:01 11/14/17 12:01 11/14/17 12:01 11/14/17 12:01 11/14/17 12:01 General appearance: cooperative, no acute distress, obese - Head Head exam: Present: atraumatic, normal inspection, normocephalic - Eye Eye exam: Present: EOMI, normal appearance, PERRL Pupils: Present: normal accommodation Additional comments: No subconjunctival hemorrhage noted. - ENT ENT exam: Present: mucous membranes moist - Neck Neck exam: Present: normal inspection - Respiratory Respiratory exam: Present: CTAB. Absent: rales, respiratory distress, rhonchi, wheezes - Cardiovascular Cardiovascular exam: Present: RRR, +S1, +S2 - GI/Abdominal GI/Abdominal exam: Present: normal bowel sounds, soft. Absent: distended, tenderness - Extremities Exam Extremities exam: Present: normal inspection. Absent: joint swelling, pedal edema, tenderness - Neurological Exam Neurological exam: Present: altered (Altered initially. Difficult to awaken and somewhat confused. Took several minutes to attain total wakefulness.), oriented X3, no focal deficits - Psychiatric Psychiatric exam: Present: normal affect, normal mood - Skin Skin exam: Present: dry, intact, normal color, warm Infectious Disease CN: Results - Labs CBC & Chem 7: 11/15/17 04:59 11/15/17 04:59 Serology: Serology 11/11/17 11/11/17 Range/Units 17:42 16:00 Urine Color Yellow (Yellow) Urine Clarity Clear (Clear) Urine pH 6.0 (5.0-8.0) pH Units Ur Specific [place] 1.028 H (1.010-1.025) Urine Protein 100 H (Neg-Trace) mg/dL Urine Glucose (UA) >=1000 H (Normal) mg/dL Urine Ketones Negative (Negative) mg/dL Urine Blood Large H (Negative) Urine Nitrite Negative (Negative) Urine Bilirubin Negative (Negative) Urine Urobilinogen Normal (Normal) mg/dL Ur Leukocyte Esterase Negative (Negative) Urine Microscopic RBC 5-15 H (0-3) per hpf Urine Microscopic WBC 5-15 H (0-3) per hpf Ur Squamous Epith Cells Many H (None-Few) per lpf Urine Bacteria None Seen (None-Few) per hpf Hyaline Casts None Seen (None-Few) per lpf Chlamy pneumoniae PCR Not Detected (Not Detect) Adenovirus (PCR) Not Detected (Not Detect) B. pertussis DNA (PCR) Not Detected (Not Detect) B.parapertussis DNA PCR Not Detected (Not Detect) Coronavirus OC43 (PCR) Not Detected (Not Detect) Coronavirus HKU1 (PCR) Not Detected (Not Detect) Coronavirus 229E (PCR) Not Detected (Not Detect) Coronavirus NL63 (PCR) Not Detected (Not Detect) Human Metapneumovir PCR Not Detected (Not Detect) Influenza A (H1) PCR Not Detected (Not Detect) Influ A (H1N1/09) PCR Not Detected (Not Detect) Influenza A (H3) PCR Not Detected (Not Detect) Influenza A Untype (PCR) Not Detected (Not Detect) Influenza Type B (PCR) Not Detected (Not Detect) M.pneumoniae DNA (PCR) Not Detected (Not Detect) Parainfluenza 1 (PCR) Not Detected (Not Detect) Parainfluenza 2 (PCR) Not Detected (Not Detect) Parainfluenza 3 (PCR) Not Detected (Not Detect) Parainfluenza 4 (PCR) Not Detected (Not Detect) RSV (PCR) Not Detected (Not Detect) Entero/Rhino (PCR) Not Detected (Not Detect) Consult Discharge Plan - Plan Referrals: NONE,PCP [Primary Care Provider] - Prescriptions: Azithromycin 250 mg PO DAILY 2 Days #2 tablet Azithromycin [Zithromax] 250 mg PO Q24H 2 Days #1 tablet Cefpodoxime Proxetil 200 mg PO BID 5 Days #10 tablet Insulin Glargine,Hum.rec.anlog [Lantus Solostar] 45 unit SQ HS 30 Days #1 Insulin LISPRO [Humalog Kwikpen U-100] 12 unit SQ TIDWM #1 Lancets/Blood Glucose Strips [Fora [id number] Strp-Lnct] 1 each ACHS # 120 combo..pkg Pen Needle, Diabetic [1St Tier Unifine Pentips] 1 each ACHS 30 Days #150 dis.needle - Attending Attestation I examined this patient and my medical decision-making was reviewed with the Resident Physician. I agree with the documented findings, disposition and treatment plan as described except to the extent set forth below. This is an addendum to original report dictated by Yamile Raygoza CNP. Please refer to Yamile's notes for full details. Patient is a 52-year-old gentleman who presented to [place] on 11/11/2017 with DKA and pneumonia. We are consulted on 11/14/2017 for antibiotic recommendations and for abnormal TTE were possible mobile mass concerning for endocarditis. A TTE was done and it reads "and imaging 11, there appears to be a very small, mobile echodensity adherent to the atrial side of the anulus of the anterior mitral valve leaflet. This could represent vegetation. Consider JOANNA to further evaluate" on further questioning. Patient denies any history of rheumatic fever when he was young. Denies history of using IV drug use. Denies history of bacteremia or MRSA. Denies history of chronic infection of prosthetic joint infection dental abscess. Patient denies bites. Patient denies any travel outside of the [place] recently. Patient is a served in [place] but never been to [place] or [place] or the [place]. Patient denies any history of STDs. Patient also had a chest x-ray done on admission which was read as "questions subtle retrocardiac left lower lobe infiltrate versus atelectasis. Clinical correlation follow-up chest radiograph are recommended to ensure resolution.". Patient had a respiratory infectious panel done which came back negative patient was started on empiric Rocephin and azithromycin. On physical exam patient has no endocarditis stigmata. No conjunctival hemorrhage. No skin lesions suggesting of possible mold or [place] lesions. No heart murmur was appreciated. Assessment and plan: Abnormal findings on the TTE concerning for endocarditis Patient has low risk factors. Recommend getting blood cultures 3 Recommend getting Coxiella IgG Recommend a rheumatoid factor Recommending JOANNA As for the questionable pneumonia Repeat chest x-ray Check urine legionella and pneumococcal antigen Agree with Rocephin and azithromycin for now until labs and x-rays are back DKA Per primary team Troponin leak Her primary team
[2017-11-14] MEDS ORDERED: D5% in Water 1,000 ML IVC SCH (14:00)
--- NOTE | 2017-11-14 14:39 | Event Note ---
Date of Encounter: 11/14/17 Time of Encounter: 14:31 Reevaluated patient after ID evaluation who noted patient to be somnolent. Patient somewhat lethargic arousable and appropriate however does repeat words. Once he awakes he seems more appropriate and alert and oriented 3. Not noted to be hypoxic via pulse ox. Recommended ABG however patient and refusing ABG. Patient being very difficult and aggressive and hostile towards myself and staff. I told him I still recommend ABG and they continue to refuse. Patient alert and oriented 3 will continue to monitor. Told him I will start a D5 drip due to hypernatremia they say they will accept this currently. Patient's may or may not have recorded conversation as she states that she records most of them. Patient's glucose continues to improve however will watch carefully due to starting D5 drip will start low at 50 mL an hour and monitor BMP in a.m. patient left oxygen fall off many times while I am evaluating him in the room and I replaced each time explained to and patient importance of keeping oxygen on. Due to noncompliance and refusal of care patient is at high risk for deterioration or complications.
--- NOTE | 2017-11-14 15:53 | Electrocardiograph Report ---
[address] [place] [address] Test Date: 2017-11-12 Pat Name: Ronnie Lorenzo Department: 112 Room: 2A39 Gender: M Occupational Health Nurse Manager: : 1965 Requested By: Talya Rodríguez Order Number: [id number] Reading MD: Katia Grove Measurements Intervals [place] Rate: 111 P: 67 LA: 132 QRS: 33 QRSD: 72 T: 201 QT: 333 QTc: 399 Interpretive Statements SINUS TACHYCARDIA MODERATE T-WAVE ABNORMALITY, CONSIDER LATERAL ISCHEMIA Electronically Signed On 11-14-2017 15:51:41 EDT by Katia Grove
--- NOTE | 2017-11-14 15:57 | Electrocardiograph Report ---
[place] [address] Test Date: 2017-11-11 Pat Name: Ronnie Lorenzo Department: 112 Room: 2A Gender: M Pier Hand: : 1965 Requested By: Long Mccartney Order Number: [id number] Reading MD: Katia Grove Measurements Intervals [place] Rate: 114 P: 63 MT: 142 QRS: 33 QRSD: 69 T: 176 QT: 342 QTc: 410 Interpretive Statements SINUS TACHYCARDIA NONSPECIFIC ST-WAVE ABNORMALITY Electronically Signed On 11-14-2017 15:56:17 EDT by Katia Grove
--- NOTE | 2017-11-14 16:41 | Event Note ---
Date of Encounter: 11/14/17 Time of Encounter: 16:39 - Cardiology Event Note Infectious disease note reviewed, and recommend JOANNA for mobile echodensity on mitral valve. Patient seen with charge nurse in room. Discussed at length regarding JOANNA and risks versus benefits. At this time, patient and family are refusing JOANNA. Patient and family state they think patient is too sick/unstable for JOANNA. Patient and family state that they may consider JOANNA prior to discharge or maybe repeat TTE. Cardiology will sign off. If agreeable for JOANNA prior to discharge, ok to place order.
[2017-11-14] MEDS: Insulin DETEMIR 100 UNIT/ML X5UNITS SQ SCH (21:35)
[2017-11-15] MEDS: *HR* Heparin 5,000 UNIT/ML VIAL SQ SCH (05:09)
[2017-11-15 05:43] LABS: Red Cell Distribution Width 13.2 % (11.5-14.5); Segmented Neutrophils % 77.9 %
[2017-11-15 05:46] LABS: Basophils % 0.2 %; Eosinophils # 0.1 K/mcL (0.0-0.6); Eosinophils % 0.8 %; Hematocrit 46.8 % (37.5-50.1); Hemoglobin 14.9 g/dL (12.9-16.9); Immature Granulocytes % 0.5 % (0-4); Immature Platelets 15.6 % (1.1-6.1); Lymphocytes # 1.9 K/mcL (0.6-4.6); Lymphocytes % 15.6 %; Mean Corpuscular HGB Conc 31.8 g/dL (31.6-35.5); Mean Corpuscular Hemoglobin 30.7 pg (28.0-33.3); Mean Corpuscular Volume 96.3 fL (83.0-100.0); Mean Platelet Volume 12.6 fL (9.4-12.4); Monocytes # 0.6 K/mcL (0.0-1.3); Neutrophils # 9.4 K/mcL (1.6-8.9); Red Blood Count 4.86 M/mcL (4.19-5.50)
[2017-11-15 05:53] LABS: BUN/Creatinine Ratio 26 (6-26); Blood Urea Nitrogen 27 mg/dL (6-20); Calcium 9.7 mg/dL (8.6-10.3); Carbon Dioxide 28 mEq/L (23-29); Chloride 109 mEq/L (98-107); Glucose 412 mg/dL (70-105); Osmolality,Calculated 325 (280-300); Potassium 4.4 mEq/L (3.5-5.1); Sodium 146 mEq/L (136-145); eGFR For Non-African Americans > 60 (> 60)
[2017-11-15 05:58] LABS: Platelet Count 82 K/mcL (140-400)
[2017-11-15 07:49] VITALS: BP 102/69
[2017-11-15] MEDS: Insulin LISPRO 300 UNITS/3 ML VIAL SQ SCH ×2 (09:09→09:10)
--- NOTE | 2017-11-15 10:07 | Event Note ---
Date of Encounter: 11/15/17 Time of Encounter: 10:04 Approach by the patient in the hallway and is very hostile. I asked the patient what is wrong he says that I am the issue because I have not seen him today. I tried to explain that there are many patients to be seen and I will see him as soon as possible. The patient will not leave the nursing area so I evaluated his labs to go evaluate the patient. The patient agreed to walk back to his room with his . They are hostile and angry towards myself and staff. They state that I should have seen him earlier today. Patient stated they have received terrible care throughout her hospitalization. I tried to address their concerns however there abdomen about leaving today. I explained that he is not medically stable for discharge however he is free to leave AGAINST MEDICAL ADVICE. They stated they would like to pursue this. I told him I will give him prescription for his insulin regimen to provide the safest discharge possible; however I also stated that he is at very high risk for hyper or hypoglycemia as we had not controlled his blood sugars adequately to this point. I also explained that I would like to obtain a CAT scan to rule out pulmonary embolism secondary to his intermittent hypoxia and tachycardia; they refused this as well. Patient's been walking throughout the halls going outside and going to the cafeteria to eat. We will perform AMA discharge paperwork with insulin prescriptions.
--- NOTE | 2017-11-15 10:14 | Discharge Summary ---
- NOTES TO OUTPATIENT PROVIDER Notes to Outpatient Provider: Patient leaving AGAINST MEDICAL ADVICE. Strongly advised to go straight to another hospital. Patient should follow-up with primary care physician as soon as possible. Patient follow-up with pulmonology but does sleep studies. Patient should have follow-up with law enforcement director. Patient should follow-up with cardiology as he needs an outpatient stress test when stable. Patient had lesion noted on mitral valve on echocardiogram; this should be followed up on as well with JOANNA if the patient agrees to this he denied this during his hospitalization. There is some concern for pulmonary embolism however the patient refuses CT angiography. Orders not resulted at time of discharge: Pending orders 11/14/17 11:56 Culture,Blood [BC] Routine 11/14/17 16:17 Coxiella burnetii Q-Fever Rflx Routine Culture,Blood [BC] Stat Date of Encounter: 11/15/17 Time of Encounter: 10:08 - Discharge Diagnosis (1) DKA (diabetic ketoacidoses) Priority: Primary Status: Resolved Qualifiers: Diabetes mellitus type: type 2 Diabetes mellitus complication detail: without coma Qualified Code(s): E11.10 - Type 2 diabetes mellitus with ketoacidosis without coma (2) Acute renal failure Priority: Secondary Status: Acute Qualifiers: Acute renal failure type: unspecified Qualified Code(s): N17.9 - Acute kidney failure, unspecified (3) Pneumonia Priority: Secondary Status: Suspected Qualifiers: Pneumonia type: due to unspecified organism Laterality: left Lung location: lower lobe of lung Qualified Code(s): J18.1 - Lobar pneumonia, unspecified organism (4) Hypernatremia Priority: Secondary Status: Acute (5) Elevated troponin Priority: Secondary Status: Acute (6) Obesity (BMI 30-39.9) Priority: Secondary Status: Acute (7) Sleep apnea Priority: Secondary Status: Acute Qualifiers: Sleep apnea type: unspecified type Qualified Code(s): G47.30 - Sleep apnea , unspecified (8) Abnormal echocardiogram Priority: Secondary Status: Acute (9) DVT prophylaxis Priority: Secondary Status: Acute (10) Thrombocytopenia Priority: Secondary Status: Acute (11) Acute respiratory failure with hypoxia Priority: Secondary Status: Acute Hospital course: Mr. Lorenzo is a 52 year old male who presented to the emergency room and [place] with cold-like symptoms urinary frequency, dysuria, subjective fever , weakness and fatigue. Patient was found to have extreme hyperglycemia with glucose and 1800s. Patient was also found to be in diabetic ketoacidosis with hypernatremia. She was transferred to [facility] and admitted to the ICU for diabetic ketoacidosis treatment. The patient was found to have pneumonia and started on antibiotics. The diabetic ketoacidosis resolved however the patient's extreme hyperglycemia improved somewhat difficult to control despite up titration of insulin. At time of discharge due to the patient leaving AGAINST MEDICAL ADVICE blood glucose is in 300-400 range. The patient also had severe hyponatremia that improved throughout his stay however is not resolved at time of him leaving. The patient and family have been very hostile and aggressive towards myself and staff members and have been very noncompliant with medical treatment. Patient frequently observed having full calorie drinks. Patient noted to have likely sleep apnea with frequent desaturations when sleeping and apneic episodes. Patient also experienced thrombocytopenia that is stablizing but still under 100K. due to intermittent hypoxia and tachycardia discuss with pulmonology recommended CTA to evaluate for pulmonary embolism however the patient refuses on day of him leaving. Patient also noted to have a lesion on mitral valve and JOANNA was recommended however the patient and refused this as well. Patient also noted to have elevated troponin with ischemic changes on ECG on admission; cardiology is evaluating the patient and recommended outpatient stress test when current issues have stabilized; these ischemic changes improved and his troponin down trended to his stay. Patient also had acute renal failure on admission that resolved with IV fluids. Patient was very confrontational and states that they are leaving today I expressed my concerns and explained to them that I wish she would stay for his own safety; patient stated they are leaving and going straight to another hospital closer to her home. I did state I would provide him with insulin and all the related supplies as well as antibiotics for his pneumonia; although I told him that he is at very high risk for continued hyperglycemia and hypoglycemia as his blood glucose has not been controlled. Due to him leaving AGAINST MEDICAL ADVICE he is at high risk for deterioration and a complications including anything up into and including . Prescriptions were provided to give him the safest discharge plan possible. He should follow-up with his primary care physician as soon as possible within one week. He should also follow up with a sleep physician for sleep study due to suspected mathew. He should also follow-up with web designer for stress test. Patient should also follow-up with primary care physician in regards to evaluation for endocarditis due to mitral valve lesion. Should also follow-up with an law enforcement director for better control of his diabetes, all of this was explained to patient and . dietetic aide was attempted to be provided to the patient and however he refused per case management. Diabetic education was provided to the patient and . Discharge discussed with: patient, family, nurse - Time Spent with Patient Total time spent providing and/or coordinating discharge services: Greater than 30 minutes - Discharge Medications Prescriptions: Azithromycin [Zithromax] 250 mg PO Q24H 2 Days #1 tablet Cefpodoxime Proxetil 200 mg PO BID 5 Days #10 tablet Insulin Glargine,Hum.rec.anlog [Lantus Solostar] 45 unit SQ HS 30 Days #1 Insulin LISPRO [Humalog Kwikpen U-100] 12 unit SQ TIDWM #1 Lancets/Blood Glucose Strips [Fora [id number] Strp-Lnct] 1 each ACHS # 120 combo..pkg Pen Needle, Diabetic [1St Tier Unifine Pentips] 1 each ACHS 30 Days #150 dis.needle Home Medications: Azithromycin [Zithromax] 250 mg PO Q24H 2 Days #1 tablet 11/15/17 [Rx] Cefpodoxime Proxetil 200 mg PO BID 5 Days #10 tablet 11/15/17 [Rx] Insulin Glargine,Hum.rec.anlog [Lantus Solostar] 45 unit SQ HS 30 Days #1 [Rx] Insulin LISPRO [Humalog Kwikpen U-100] 12 unit SQ TIDWM #1 11/15/17 [Rx] Lancets/Blood Glucose Strips [Fora [id number] Strp-Lnct] 1 each ACHS # 120 combo..pkg 11/15/17 [Rx] Pen Needle, Diabetic [1St Tier Unifine Pentips] 1 each [facility] 30 Days #150 dis.needle 11/15/17 [Rx] Allergies/Adverse Reactions: 3 Allergy/AdvReac Type Severity Reaction Status Date / Time No Known Allergies Allergy Verified 11/11/17 18:36 Date of admission: 11/11/17 15:21 Primary care physician: PCP NONE Consults: 11/11/17 15:26 Consult for Pharmacy Education [CONS] Routine Reason for Consult: when patient improves for diabetes education Call Completed: No 11/13/17 07:28 Consult to Cardiology [CONS] Routine Comment: Consulting Provider: Cardiology Lynnette Reason for Consult: elevated troponins with t wave inversions on ecg Call Completed: No 11/14/17 11:16 Consult to Infectious Diseases [CONS] Routine Consulting Provider: Infectious [facility] [place] Reason for Consult: eval for need for JOANNA due to small lesion seen on echocardiogram Call Completed: No - Constitutional Vitals: Temp Pulse Resp BP Pulse Ox 98.9 F 104 16 102/69 93 11/15/17 07:40 11/15/17 07:40 11/15/17 07:40 11/15/17 07:40 11/15/17 07:40 Exam: [place]re[place]: in street clothes sitting in chair Psych: AAO, upset and hostile Cardio: tachycardic, no murmurs/rubs/gallops Respiratory: CTAB Ext: no c/c/e Abd: protuberant with small eccymoses from sq hep - Patient Status Disposition: Left Against Medical Advice Condition: Serious Functional capacity at discharge: independent ambulation Overall status at discharge: patient is not back to baseline - Discharge Instructions Follow Up With: NONE,PCP [Primary Care Provider] - - Diet and Activity Activity: other (recommed pt to go to hospital and be careful with ambulation ) Diet: diabetic diet, low fat, low cholesterol, low salt diet
[2017-11-15] MEDS: cefTRIAXone 1,000 MG in Water for inj. (sterile) 20 ML 10 ML IVP SCH (11:19)
[2017-11-15] MEDS: Azithromycin 250 MG TABLET PO SCH (11:20)
== END 2017-11-15 11:00 | disposition left against medical advice (07) | DRG 637 ==
LOC: ICNU 15:21 → 2ANU 11-12 19:51
PROVIDERS: ADMIT Internal Medicine Pulmonary Disease; ATTEND Student in an Organized Health Care Education/Training Program